=== PATIENT | male | born 1955 | race Caucasian/White ===

== ENCOUNTER → 2021-03-08 | Outpatient (CLI) | payer BC, MEDICARE ==
[~2021-03-08] MED LIST: ASPI-892; CALCIUM/MG/ZINC; HYDR-3729 PO; MULT-608
--- NOTE | 2021-03-08 12:35 | Diagnostic Imaging Report ---
PROCEDURE: CT abdomen and pelvis without contrast. TECHNIQUE: Multiple contiguous axial images were obtained through the abdomen and pelvis without the use of intravenous contrast. Auto Exposure Controls were utilized during the CT exam to meet ALARA standards for radiation dose reduction. INDICATION: Prostate carcinoma. COMPARISON: CT abdomen/pelvis study from 04/27/2009. FINDINGS: The lung bases are clear. The liver and gallbladder are unremarkable. No biliary ductal dilatation is seen. The pancreas and spleen are unremarkable. No adrenal mass is detected. No renal calculus or hydronephrosis is seen. The aorta is nonaneurysmal. No central retroperitoneal or mesenteric lymphadenopathy is detected. The small and large bowel loops are of normal caliber. Occasional diverticula within the descending and sigmoid colon are noted but there is no evidence of acute diverticulitis. No free fluid or fluid collection is identified. The bladder is decompressed. The prostate is enlarged. No pelvic lymphadenopathy is detected. No definite osteolytic or blastic lesions are seen. IMPRESSION: 1. Prostatomegaly. No abdominal or pelvic lymphadenopathy or metastatic disease is detected. 2. Uncomplicated diverticulosis. Dictated by: Dictated on workstation # [id number]
--- NOTE | 2021-03-08 19:27 | Diagnostic Imaging Report ---
INDICATION: Prostate carcinoma. TECHNIQUE: The patient was administered 27.0 mCi technetium 99m MDP intravenously and whole-body imaging was performed after a three-hour delay. COMPARISON: No prior bone scans are available for comparison. FINDINGS: There is normal uptake of activity by the axial and appendicular skeleton. There is uptake by both kidneys with excretion into the urinary bladder. There appears to be degenerative uptake about the left knee. No suspicious focus of tracer accumulation is seen to suggest osseous metastatic disease. IMPRESSION: No scintigraphic evidence of osseous metastatic disease. Dictated by: Dictated on workstation # [id number]
== END ==
LOC: CARD 11:34
PROVIDERS: ATTEND Urology
DX: N40.0 Benign prostatic hyperplasia without lower urinary tract symptoms (principal); K57.30 Diverticulosis of large intestine without perforation or abscess without bleeding; Z85.46 Personal history of malignant neoplasm of prostate
CPT/HCPCS: 74176; 78306; A9503

== ENCOUNTER 2021-03-29 09:15 | Outpatient (RCR) | payer BC | END 2021-06-27 | disposition home or self-care (01) | LOC: ONC 09:15 | PROVIDERS: ATTEND Radiology Radiation Oncology | DX: C61 Malignant neoplasm of prostate (principal) | CPT/HCPCS: 76873; G0463; 99205 ==

== ENCOUNTER 2021-06-17 09:31 | Outpatient (CLI) | payer BC ==
[~2021-06-17] VITALS: Ht 185.4 cm; Wt 97.5 kg
[~2021-06-17 09:31] MED LIST changes: +ACETAMINOPHEN 500 MG TAB (TYLENOL) PO PRN; +CASIRIVIMAB/IMDEVIMAB 1,200 MG in NS (IVPB) 250 ML IV ONE; +EPINEPHrine INJECTION 1 MG/ML AMP IM PRN; +ONDANSETRON 4 MG/2 ML (SDV) Z0FRAN IV PRN; +diphenhydrAMINE 50 MG/ML INJ (BENADRYL) IV PRN
[2021-06-17 10:21] VITALS: BP 138/61
[2021-06-17 11:15] VITALS: BP 132/73
== END 2021-06-17 11:20 | disposition home or self-care (01) ==
LOC: INFUSION 09:31
PROVIDERS: ATTEND Nurse Practitioner Family
DX: U07.1 COVID-19 (principal)

== ENCOUNTER 2021-08-23 08:51 | Outpatient (RCR) | payer BC ==
[~2021-08-23 08:51] MED LIST changes: -ACETAMINOPHEN 500 MG TAB (TYLENOL) PO PRN; -CASIRIVIMAB/IMDEVIMAB 1,200 MG in NS (IVPB) 250 ML IV ONE; -EPINEPHrine INJECTION 1 MG/ML AMP IM PRN; -ONDANSETRON 4 MG/2 ML (SDV) Z0FRAN IV PRN; -diphenhydrAMINE 50 MG/ML INJ (BENADRYL) IV PRN
[2021-09-07] MEDS ORDERED: TMSL.4C PO (10:47)
[2021-09-07] MEDS ORDERED: FINA5TAB PO (10:47)
[2021-09-07] MEDS ORDERED: CHOL400C9 PO (11:27)
[2021-09-07] MEDS ORDERED: L.AC1CAP6 PO (11:27)
[2021-09-07] MEDS ORDERED: ASCO500T17 PO (11:27)
[2021-09-07] MEDS ORDERED: ZINC10LO4 PO (11:27)
== END 2021-09-10 | disposition home or self-care (01) ==
LOC: ONC 08:51
PROVIDERS: ATTEND Radiology Radiation Oncology
DX: C61 Malignant neoplasm of prostate (principal)
CPT/HCPCS: 76873

== ENCOUNTER 2021-09-02 05:35 | Outpatient (CLI) | payer BC ==
[~2021-09-02] VITALS: Ht 185.5 cm; Wt 91.0 kg
[2021-09-07] MEDS ORDERED: FINA5TAB PO (10:47)
[2021-09-07] MEDS ORDERED: TMSL.4C PO (10:47)
[2021-09-07] MEDS ORDERED: ASCO500T17 PO (11:27)
[2021-09-07] MEDS ORDERED: ZINC10LO4 PO (11:27)
[2021-09-07] MEDS ORDERED: L.AC1CAP6 PO (11:27)
[2021-09-07] MEDS ORDERED: CHOL400C9 PO (11:27)
== END 2021-09-07 11:35 | disposition home or self-care (01) ==
LOC: PREOP 05:35
PROVIDERS: ATTEND Urology
DX: Z01.818 Encounter for other preprocedural examination (principal)

== ENCOUNTER 2021-09-15 05:55 | Day surgery (SDC) | payer BC ==
[~2021-09-15] VITALS: Ht 185.5 cm; Wt 91.0 kg
[2021-09-15] VITALS (10 sets, daily range): BP systolic 130–158; BP diastolic 73–100
[~2021-09-15 05:55] MED LIST changes: +ASCO500T17 PO; +CHOL400C9 PO; +FINA5TAB PO; +L.AC1CAP6 PO; +TMSL.4C PO; +ZINC10LO4 PO
[2021-09-15] MEDS ORDERED: BACITRACIN OINTMENT 28 GM TUBE ONE (06:53)
[2021-09-15] MEDS ORDERED: SEVOFLURANE (ULTANE) 15 ML INHAL SOLN ONE ×2 (06:57→09:02)
[2021-09-15] MEDS ORDERED: LIDOCAINE PF 2% 5 ML (XYLOCAINE) VIAL ONE (06:57)
[2021-09-15] MEDS ORDERED: fentaNYL INJ 100 MCG/2 ML AMP ONE (06:57)
[2021-09-15] MEDS ORDERED: ONDANSETRON 4 MG/2 ML (SDV) Z0FRAN ONE (06:57)
[2021-09-15] MEDS ORDERED: proPOfol 200 MG/20 ML (DIPRIVAN) VIAL IV ONE (06:57)
[2021-09-15] MEDS ORDERED: MIDAZOLAM 2 MG/2 ML (VERSED) VIAL ONE (07:01)
[2021-09-15] MEDS: LACTATED RINGERS 1,000 ML IV PRN ×2 (07:25→08:32)
--- NOTE | 2021-09-15 07:26 | Progress Note-Pre Operative ---
Pre-Operative Progress Note H&P Reviewed The H&P was reviewed, patient examined and no changes noted. Date Seen by Provider: Sep 15, 2021 Time Seen by Provider: 07:26 Date H&P Reviewed: Sep 15, 2021 Time H&P Reviewed: 07:26 Pre-Operative Diagnosis: CA PROSTATE MICHAELA PAREDES MD Sep 15, 2021 07:26
--- NOTE | 2021-09-15 07:28 | Progress Note-Post Operative ---
Post-Operative Progess Note Surgeon (s)/First Assist (s) Surgeon ALBERTO CURRY MD, MICHAELA PAREDES MD First Assist: NONE Pre-Operative Diagnosis CA PROSTATE Post-Operative Diagnosis SAME Procedure & Operative Findings Date of Procedure 09/15/21 Procedure Performed/Findings BRACHYTHERAPY, SPACE OAR, CYSTOGRAM Anesthesia Type GENERAL Estimated Blood Loss Estimated blood loss (mL): NEGLGIGIBLE Specimens/Packing Specimens Removed NONE Packing: NONE MICHAELA PAREDES MD Sep 15, 2021 07:28
--- NOTE | 2021-09-15 07:31 | Discharge Inst-Urology ---
Discharge Inst-Urology Reconcile Patient Problems Problems Reviewed?: Yes Final Diagnosis CAP Patient Instructions/Follow Up Plan/Assessment/Instructions Discharge with villarreal and leg bag day time and large bag night time with instructions. Come to office monday 9am to SHAY[facility] Villarreal Please make appointment to been seen in office in 2 weeks. Increase oral fluids for 48 hours and then as needed. Keep bowels soft and moving Diet as tolerated Follow [facility] instructions and follow up If questions or concerns contact your physician Or seek help at emergency department. MICHAELA PAREDES MD Sep 15, 2021 07:31
[2021-09-15] MEDS ORDERED: GLYCOPYRROLATE 0.2 MG/ML (ROBINUL) 2 ML VIAL ONE (07:47)
[2021-09-15] MEDS ORDERED: PHENYLEPHRINE 100 MCG/ML 10 ML (ANESTHESIA) SYR ONE (07:50)
[2021-09-15] MEDS ORDERED: ONDANSETRON 4 MG/2 ML (SDV) Z0FRAN IVP PRN (09:00)
[2021-09-15] MEDS ORDERED: HYDROmorphone 2 MG/ML VIAL (DILAUDID) IV ONE (09:00)
[2021-09-15] MEDS ORDERED: CIPR-225 PO (09:52)
[2021-09-15] MEDS ORDERED: KETO10TA PO (09:52)
[2021-09-15] MEDS ORDERED: PHEN-640 PO (09:52)
--- NOTE | 2021-09-15 11:25 | Diagnostic Imaging Report ---
EXAMINATION: Fluoroscopy. INDICATION: Brachytherapy. TECHNIQUE: Fluoroscopic assistance was provided for Dr. Johnson. 30 seconds of fluoroscopy time was utilized. FINDINGS: A single spot AP view of the pelvis was obtained. There is contrast within the opacified bladder. Numerous metallic radiopaque seed implants are also seen within the prostate gland. IMPRESSION: Fluoroscopic assistance was provided for Dr. Johnson. Dictated by: Dictated on workstation # [id number]
--- NOTE | 2021-09-16 11:01 | Anesthesia-General Post-Op ---
General Patient Condition Mental Status/LOC: Same as Preop Cardiovascular: Satisfactory Nausea/Vomiting: Absent Respiratory: Satisfactory Pain: Controlled Complications: Absent Post Op Complications Complications None Follow Up Care/Instructions Patient Instructions None needed. Anesthesia/Patient Condition Patient Condition Patient is doing well, no complaints, stable vital signs, no apparent adverse anesthesia problems. No complications reported per nursing. D/C home per [facility] [place] Criteria: Yes AUDI MANCUSO CRNA Sep 16, 2021 11:01
== END 2021-09-15 10:50 ==
LOC: SDC 05:55
PROVIDERS: ATTEND Urology
DX: C61 Malignant neoplasm of prostate (principal); Z79.899 Other long term (current) drug therapy
CPT/HCPCS: 55874; 55876; 76000; 76965; 77290; 77318; 77332; 77370; 77470; 77778; 87081; C1715 ×2; C1889; C2643

== ENCOUNTER 2021-10-05 13:49 | Emergency (ER) | payer BC ==
[~2021-10-05] VITALS: Ht 185 cm; Wt 100.0 kg
[~2021-10-05 13:49] MED LIST changes: +CIPR-225 PO; +KETO10TA PO; +PHEN-640 PO
--- NOTE | 2021-10-05 14:30 | ED GU-Male ---
General Chief Complaint: - Reproductive Stated Complaint: R TESTICLE PAIN/SWELLING Source: patient Exam Limitations: no limitations History of Present Illness Date Seen by Provider: Oct 05, 2021 Time Seen by Provider: 14:28 Initial Comments Patient is a 66-year-old male who presents ED with right testicle pain and swelling. Started having discomfort this past Monday. Appear to be worse when he bends over or any movement. Patient noticed increased swelling with out much skin color changes. Denies of any specific change in urination such as pain. Does have frequent urination but did have a recent urology procedure perfrom sep 14 and states that he may have frequent urination.. Denies of any abdominal pa in, chest pain, shortness of breath, nausea, vomiting, diarrhea. Allergies and Home Medications Allergies Coded Allergies: No Known Drug Allergies (Unverified , 09/15/21) Patient Home Medication List Home Medication List Reviewed: Yes Ascorbic Acid (Vitamin C) 500 Mg Tablet, 500 MG PO DAILY, (Reported) Entered as Reported by: AUGUST SALINAS on 09/07/21 112 Cholecalciferol (Vitamin D3) (Vitamin D3) Unknown Strength Capsule, Unknown Dose PO, (Reported) Entered as Reported by: AUGUST SALINAS on 09/07/21 1127 Ciprofloxacin HCl (Cipro) 500 Mg Tablet, 500 MG PO BID Prescribed by: HONORIO BOWLES on 09/15/21 0952 Finasteride (Proscar) 5 Mg Tablet, 5 MG PO DAILY, (Reported) Entered as Reported by: AUGUST SALINAS on 09/07/21 1047 Ketorolac Tromethamine (Ketorolac Tromethamine) 10 Mg Tablet, 10 MG PO Q6H PRN for PAIN-MODERATE (5-7) Prescribed by: HONORIO BOWLES on 09/15/21 0952 L.acidoph & Paracasei,B.lactis (Probiotic) 1 Each Capsule, 1 EACH PO DAILY, (Reported) Entered as Reported by: AUGUST SALINAS on 09/07/21 1127 Levofloxacin (Levofloxacin) 500 Mg Tablet, 500 MG PO DAILY Prescribed by: PEPPER POOL on 10/05/21 1552 Phenazopyridine HCl (Pyridium) 200 Mg Tablet, 1 TAB PO BID PRN Prescribed by: HONORIO BOWLES on 09/15/21 0952 Tamsulosin HCl (Flomax) 0.4 Mg Cap, 0.4 MG PO DAILY, (Reported) Entered as Reported by: AUGUST SALINAS on 09/07/21 1047 Zinc Gluconate (Zinc) 10 Mg Lozenge, 10 MG PO DAILY, (Reported) Entered as Reported by: AUGUST SALINAS on 09/07/21 1127 Review of Systems Review of Systems Constitutional: No chills, No dizziness, No fever, No malaise EENTM: No blurred vision, No eye pain, No throat pain, No throat swelling Respiratory: No cough, No dyspnea on exertion, No short of breath Cardiovascular: No chest pain, No edema Gastrointestinal: No abdominal pain, No diarrhea, No nausea, No vomiting Genitourinary: denies dysuria; frequency Musculoskeletal: No back pain, No joint pain, No joint swelling, No muscle pain, No muscle stiffness Psychiatric/Neurological: Denies Depressed All Other Systemes Reviewed Negative Unless Noted: Yes Past Qpcfnwy-Idlcel-Udcjbn Hx Immunizations Up To Date First/Initial COVID19 Vaccinat: OCT 2019 Second COVID19 Vaccination Gold: WAITING TIME POST COVID INFUSION Seasonal Allergies Seasonal Allergies: Yes Past Medical History Surgeries: Yes (KNEE SCOPE, BUNION ) Orthopedic Respiratory: No Currently Using CPAP: No Currently Using BIPAP: No Cardiac: No Neurological: No Reproductive Disorders: No Sexually Transmitted Disease: No HIV/AIDS: No Genitourinary: Yes Benign Prostatic Hyperpl, Prostate Problems Gastrointestinal: No Musculoskeletal: No Endocrine: No HEENT: No Loss of Vision: Bilateral Hearing Impairment: Denies Cancer: Yes (EARLY STAGE) Prostate Psychosocial: No Integumentary: Yes Eczema Blood Disorders: No Adverse Reaction/Blood Tranf: No Physical Exam Vital Signs Vital Signs - First Documented 10/05/21 13:53 Temp 36.6 Pulse 68 Resp 18 B/P (MAP) 146/84 (104) Pulse Ox 98 O2 Delivery Room Air Capillary Refill : Height, Weight, BMI Height: '" Weight: lbs. oz. kg; 26.44 BMI Method: General Appearance: WD/WN, no apparent distress HEENT: PERRL/EOMI, normal ENT inspection, TMs normal, pharynx normal Neck: non-tender, full range of motion, supple, normal inspection Cardiovascular: regular rate, rhythm, no edema, no gallop, no JVD Respiratory: chest non-tender, lungs clear, normal breath sounds, no respiratory distress, no accessory muscle use Gastrointestinal: normal bowel sounds, non tender, soft, no organomegaly Genital/Rectal: other (Right testicle swelling and tenderness. No palpable mass. No erythema.) Back: normal inspection, no CVA tenderness, no vertebral tenderness Progress/Results/Core Measures Suspected Sepsis SIRS Temperature: Pulse: Respiratory Rate: Blood Pressure / Mean: Results/Orders Lab Results Laboratory Tests Test 10/05/21 14:31 Range/Units Urine Color YELLOW Urine Clarity CLEAR Urine pH 6.0 5-9 Urine Specific Mobile >=1.030 1.016-1.022 Urine Protein NEGATIVE NEGATIVE Urine Glucose (UA) NEGATIVE NEGATIVE Urine Ketones NEGATIVE NEGATIVE Urine Nitrite NEGATIVE NEGATIVE Urine Bilirubin NEGATIVE NEGATIVE Urine Urobilinogen 0.2 < = 1.0 MG/DL Urine Leukocyte Esterase NEGATIVE NEGATIVE Urine RBC (Auto) NEGATIVE NEGATIVE Urine RBC NONE /HPF Urine WBC NONE /HPF Urine Squamous Epithelial Cells RARE /HPF Urine Crystals NONE /LPF Urine Bacteria NEGATIVE /HPF Urine Casts NONE /LPF Urine Mucus SMALL H /LPF Urine Culture Indicated NO My Orders Orders - MARYSOL PELAEZ Ua Culture If Indicated (10/05/21 14:22) Us Scrotum (Testicle) [id number] (10/05/21 14:27) Vital Signs/I&O 10/05/21 10/05/21 10/05/21 13:53 14:38 15:57 Temp 36.6 36.6 Pulse 68 89 89 Resp 18 18 18 B/P (MAP) 146/84 (104) 169/100 169/100 Pulse Ox 98 98 O2 Delivery Room Air Room Air Capillary Refill : Departure Communication (Admissions) Patient is a 66-year-old male presents ED with right scrotum pain with swelling. Tender to palpate. Notable swelling noted. Does have frequent urination. Currently being managed by Dr. Paredes. Patient had recent brachytherapy for prostate cancer earlier this month. Patient urinalysis without strong evidence of urinary tract infection. He has no abdominal tenderness, flank pain, fever, vomiting or diarrhea. Reports frequent urination but that is chronic. Ultrasound negative for testicle or torsion but does show concern for orchitis versus epididymitis. Likely enteric in nature. Patient will be discharged with levofloxacin 500 mg for 10 days. Follow-up with urology. Return precaution were discussed with patient. Impression Primary Impression: Epididymitis Disposition: HOME, SELF-CARE Condition: Stable Departure-Patient Inst. Decision time for Depature: 15:50 Referrals: NAEEM GALO MD (PCP) Primary Care Physician MICHAELA PAREDES MD Patient Instructions: Epididymitis Scripts Levofloxacin (Levofloxacin) 500 Mg Tablet 500 MG PO DAILY for 10 Days, #10 TAB Prov: MARYSOL PELAEZ 10/05/21 MARYSOL PELAEZ Oct 05, 2021 14:30
[2021-10-05 14:38] LABS: BILIRUBIN,URINE NEGATIVE (NEGATIVE); CLARITY,URINE CLEAR; COLOR,URINE YELLOW; GLUCOSE, URINE (UA) NEGATIVE (NEGATIVE); KETONES,URINE NEGATIVE (NEGATIVE); LEUKOCYTE ESTERASE ,URINE NEGATIVE (NEGATIVE); NITRITE,URINE NEGATIVE (NEGATIVE); PROTEIN,URINE NEGATIVE (NEGATIVE)
[2021-10-05 14:44] LABS: BACTERIA,URINE NEGATIVE /HPF; SQUAMOUS EPITHELIAL CELL,UR RARE /HPF
--- NOTE | 2021-10-05 15:42 | Diagnostic Imaging Report ---
PROCEDURE: US Scrotum. INDICATION: Right testicular pain and swelling. TECHNIQUE: Spectral and color-flow imaging was performed. COMPARISON: There are no prior exams available for comparison. FINDINGS: Both testicles were identified. The right testicle measures 3.6 x 2.0 x 2.9 cm while the left testicle is estimated to be 3.6 x 1.9 x 2.7 cm. There is no evidence for a solid testicular mass nor is there any sign of torsion. However, there does appear to be increased vascularity throughout the right testicle. The right epididymis is also hyperemic. These findings do suggest right orchitis/epididymitis. There is no acute abnormality of the left testicle or of the left epididymis. There is only a trace amount of fluid about each testicle. IMPRESSION: 1. The findings do suggest right orchitis/epididymitis. 2. There is no acute abnormality of the left testicle. Dictated by: Dictated on workstation # [id number]
[2021-10-05] MEDS ORDERED: LEVO500T81 PO (15:52)
[2021-10-05 15:57] VITALS: BP 169/100
== END 2021-10-05 15:57 | disposition home or self-care (01) ==
LOC: EDUNIT# 13:49 → ER 13:51
DX: N45.1 Epididymitis (principal); N40.0 Benign prostatic hyperplasia without lower urinary tract symptoms; Z79.899 Other long term (current) drug therapy
CPT/HCPCS: 76870; 81000; 99282

== ENCOUNTER 2021-10-19 08:49 | Outpatient (RCR) | payer BC ==
[~2021-10-19 08:49] MED LIST changes: +LEVO500T81 PO
== END 2021-11-08 | disposition home or self-care (01) ==
LOC: ONC 08:49
PROVIDERS: ATTEND Radiology Radiation Oncology
DX: Z51.0 Encounter for antineoplastic radiation therapy (principal); C61 Malignant neoplasm of prostate
CPT/HCPCS: 77290

== ENCOUNTER 2021-12-02 09:45 | Outpatient (RCR) | payer BC | END 2021-12-09 | disposition home or self-care (01) | LOC: ONC 09:45 | PROVIDERS: ATTEND Radiology Radiation Oncology | DX: C61 Malignant neoplasm of prostate (principal) | CPT/HCPCS: 77295 ==